=== PATIENT | male | born 1940 | race African-American/Black ===

== ENCOUNTER 2021-02-04 19:06 | Emergency (ER) | payer OTHER ==
[2021-02-04 19:15] VITALS: BMI 30.2
[2021-02-04] MEDS ORDERED: ACETAMINOPHEN 1000 MG/100 ML VIAL IVPB ONE (21:46)
[2021-02-04] MEDS ORDERED: ACETAMINOPHEN INJECTION 100 ML IVPB ONE (21:56)
[2021-02-04 23:34] LABS: BASO % 0.5 % (0-2.0); EOS % 0.8 % (0-4.5); HEMATOCRIT 27.3 % (35.4-49); HEMOGLOBIN 9.1 GM/dL (11.7-16.9); LYMPH % 16.3 % (8-40); MCH 29.1 pg (25.7-33.7); MCHC 33.3 g/dl (32.0-35.9); MEAN CELL VOLUME 87.2 fl (80-96); MEAN PLT VOLUME 9.6 fl (7.5-11.1); MONO % 9.8 % (3.8-10.2); NEUT % 72.6 % (42.8-82.8); PLATELET COUNT 167 10^3/uL (134-434); RBC 3.13 M/mm3 (4.00-5.60); RDW 20.6 % (11.9-15.9); WHITE BLOOD COUNT 8.4 K/mm3 (4.0-10.0)
[2021-02-04 23:41] LABS: INR 1.43 (0.83-1.09); PROTHROMBIN TIME (PATIENT) 16.8 SEC (9.7-13.0)
[2021-02-04 23:43] LABS: ACTIVATED PTT 29.4 SECONDS (25.2-36.5)
[2021-02-05 01:11] LABS: ERYTHROCYTE SEDIMENTATION RATE 16 mm/hr (0-20)
[2021-02-05] MEDS ORDERED: PIPERACILLIN/TAZOB 2.25 GM 2.25 GM in DEXTROSE 5%-WATER - 50 ML IVPB ONE (01:58)
[2021-02-05] MEDS ORDERED: PIPERACILLIN/TAZOB 2.25 GM 2.25 GM/50 ML BAG IVPB ONE (02:05)
[2021-02-05 02:18] VITALS: PULSE 59
[2021-02-05 02:21] LABS: BLOOD UREA NITROGEN 22.6 mg/dL (7-18); CREATININE 1.8 mg/dL (0.55-1.3)
[2021-02-05 02:22] LABS: ALBUMIN 3.7 g/dl (3.4-5.0); BILIRUBIN,TOTAL 0.8 mg/dL (0.2-1); TOT PROT 6.7 g/dl (6.4-8.2)
[2021-02-05 02:23] LABS: N-TERMINAL BNP 955.79 pg/ml (5-450)
[2021-02-05 06:13] VITALS: BP 155/67; TEMP 98.5
[2021-02-05 10:11] LABS: ANISOCYTOSIS 3+; MACROCYTOSIS 0; OVALOCYTE 3+; PLATELET ESTIMATE NORMAL
== END 2021-02-05 06:18 | disposition short-term general hospital (02) ==
LOC: JER 19:06
PROC: 3E0333Z Introduction of Anti-inflammatory into Peripheral Vein, Percutaneous Approach (ICD-10-PCS; principal; 2021-02-04)
PROC: 3E03329 Introduction of Other Anti-infective into Peripheral Vein, Percutaneous Approach (ICD-10-PCS; 2021-02-04)
DX: S80.11XA Contusion of right lower leg, initial encounter (principal); L03.115 Cellulitis of right lower limb; W22.09XA Striking against other stationary object, initial encounter
CPT/HCPCS: 36415; 70450-TC; 71045-TC-FY; 72125-TC; 73590-TC-RT-FY; 80053; 82550; 83605; 83880; 84484; 85025; 85610; 85651; 85730; 86140; 93005; 93010; 93970-TC; 99285-25; C9803; J0131; U0003; U0005